=== PATIENT | male | born 1990 | race Caucasian/White ===

== ENCOUNTER 2021-04-12 17:07 | Emergency (ER) | payer OTHER ==
[~2021-04-12] VITALS: Ht 185.4 cm; Wt 142.8 kg
[2021-04-12] MEDS ORDERED: IV NORMAL SALINE 1,000ML 1,000 ML IV ONE (18:30)
--- NOTE | 2021-04-12 18:36 | EKG ---
[address] [address] Test Date: 2021-04-12 Test Time: 18:04:00 Pat Name: SULMA HUSTON Department: Room: Gender: M Gopherman: PENG : 1990 Requested By: RTISH RICHARDSON Order Number: [id number] Reading MD: Pasha Coffman Measurements Intervals [place] Rate: 97 P: 46 UT: 126 QRS: 16 QRSD: 88 T: 13 QT: 328 QTc: 421 Interpretive Statements SINUS RHYTHM Electronically Signed On 04-13-2021 12:41:06 CDT by Pasha Coffman
--- NOTE | 2021-04-12 18:53 | PHYS DOC ---
Past History Past Surgical History: Other Additional Past Surgical Histo: l rotator cuff, sinus Alcohol Use: Rarely General Adult EDM: Chief Complaint: URINARY RETENTION HPI: HPI: Patient is a 30-year-old male who presents with recent illness. Patient states that on Saturday he started having nausea/diarrhea/abdominal cramping, no appetite, headache and lower back pain. Denies fever. "I was worried because I have not been able to drink or eat anything since Saturday". "I have drank 3, route 44 water from [employer] today". Patient states that he feels fine today and denying all symptoms. "I just wanted to make sure that I was okay". History of hypertension. Review of Systems: Review of Systems: ROS At least 10 ROS systems have been reviewed and are negative except as documented in the HPI. General: Negative except as outlined in HPI above. Skin: Negative except as outlined in HPI above. HEENT: Negative except as outlined in HPI above. Neck: Negative except as outlined in HPI above. Respiratory: Negative except as outlined in HPI above.. Cardiovascular: Negative except as outlined in HPI above. Abdomen: Negative except as outlined in HPI above. : Negative except as outlined in HPI above. Back/MSK: Negative except as outlined in HPI above. Neuro: Negative except as outlined in HPI above. Psych: Negative except as outlined in HPI above. Current Medications: Current Meds: Current Medications Medications (Trade) Dose Ordered Sig/Gabrielle Start Time Stop Time Status Last Admin Dose Admin Sodium Chloride 1,000 ml @ 1,000 mls/hr 1X ONCE 04/12/21 18:30 04/12/21 19:29 UNV 04/12/21 18:30 1,000 MLS/HR Allergies: Allergies: Allergies Coded Allergies Type Severity Reaction Last Updated Verified No Known Drug Allergies 04/12/21 No Physical Exam: PE: Constitutional: Well developed, well nourished, no acute distress, non-toxic appearance. [] HENT: Normocephalic, atraumatic, bilateral external ears normal, oropharynx moist, no oral exudates, nose normal. [] Eyes: PERRLA, EOMI, conjunctiva normal, no discharge. [] Neck: Normal range of motion, no tenderness, supple, no stridor. [] Cardiovascular:Heart rate regular rhythm, no murmur [] Lungs & Thorax: Bilateral breath sounds clear to auscultation [] Abdomen: Bowel sounds normal, soft, no tenderness, no masses, no pulsatile masses. [] Skin: Warm, dry, no erythema, no rash. [] Back: No tenderness, no CVA tenderness. [] Extremities: No tenderness, no cyanosis, no clubbing, ROM intact, no edema. [] Neurologic: Alert and oriented X 3, normal motor function, normal sensory function, no focal deficits noted. [] Psychologic: Affect normal, judgement normal, mood normal. [] Current Patient Data: Vital Signs: Vital Signs Date Time Temp Pulse Resp B/P (MAP) Pulse Ox O2 Delivery O2 Flow Rate FiO2 04/12/21 17:30 98.8 116 22 155/95 (115) Room Air EKG: EKG: [] Radiology/Procedures: Radiology/Procedures: [] Heart Score: C/O Chest Pain: No Risk Factors: Risk Factors: DM, Current or recent (<one month) smoker, HTN, HLP, family history of CAD, obesity. Risk Scores: Score 0 - 3: 2.5% MACE over next 6 weeks - Discharge Home Score 4 - 6: 20.3% MACE over next 6 weeks - Admit for Clinical Observation Score 7 - 10: 72.7% MACE over next 6 weeks - Early Invasive Strategies Course & Med Decision Making: Course & Med Decision Making Pertinent Labs and Imaging studies reviewed. (See chart for details) [] 30-year-old male presents with concern over recent illness. Patient reports on Saturday he began feeling ill and has been unable to eat or drink anything until today. Patient was concerned something was wrong with him and he was dehydrated. Basic labs and NS bolus given. Patient's denying pain or any symptoms at this time. Afebrile. Patient most likely has viral syndrome. All labs unremarkable. Patient has urinated twice while in the emergency room. Patient's denying pain or any symptoms. Patient is hemodynamically stable. Discussed results with patient. Patient instructed to continue drinking plenty of water. Patient needs to follow follow-up with his PCP in the next couple of days. Dragon Disclaimer: Dragthor Disclaimer: This electronic medical record was generated, in whole or in part, using a voice recognition dictation system. Departure Departure: Impression: Primary Impression: Viral syndrome Disposition: 01 HOME / SELF CARE / HOMELESS Condition: STABLE Referrals: PETE FLYNN MD (PCP) Patient Instructions: Viral Syndrome Additional Instructions: You were seen in the emergency room for recent illness. You were given fluids in the emergency room. All of your labs were unremarkable. Please follow-up with your PCP in the next 1 to 2 days. Return to emergency room if you have wo rsening symptoms or concerns. EMERGENCY DEPARTMENT GENERAL DISCHARGE INSTRUCTIONS Thank you for coming to [facility] (ED) today and trusting us with you care. We trust that you had a positivie experience in our Emergency Department. If you wish to speak to the department management, you may call the director at [phone]. YOUR FOLLOW UP INSTRUCTIONS ARE FOLLOWS: 1. Do you have a private Doctor? If you do not have a private doctor, please ask for a resource list of physicians or clinics that may be able to assist you with follow up care. 2. The Emergency Physician has interpreted your x-rays. The X-Ray specialist will also review them. If there is a change in the findings, you will be notified in 48 hours when at all possible. 3. A lab test or culture has been done, your results will be reviewed and you will be notified if you need a change in treatment. ADDITIONAL INSTRUCTIONS AND INFORMATION: 1. Your care today has been supervised by a physician who is specially trained in emergency care. Many problems require more than one evaluation for a complete diagnosis and treatment. We recommend that you schedule your follow up appointment as recommended to ensure complete treatment of you illness or injury. If you are unable to obtain follow up care and continue to have a problem, or if your condition worsens, we recommend that you return to the ED. 2. We are not able to safely determine your condition over the phone nor are we able to give sound medical advice over the phone. For these safety reasons, if you call for medical advice we will ask you to come to the ED for further evaluation. 3. If you have any questions regarding these discharge instructions please call the ED at [phone]. SAFETY INFORMATION: In the interest of safety, wellness, and injury prevention; we encourage you to wear your sealbelt, if you smoke; quite smoking, and we encourage family to use a protective helmet for bicycling and other sporting events that present an increased risk for head injury. IF YOUR SYMPTOMS WORSEN OR NEW SYMPTOMS DEVELOP, OR YOU HAVE CONCERNS ABOUT YOUR CONDITION; OR IF YOUR CONDITION WORSENS WHILE YOU ARE WAITING FOR YOUR FOLLOW UP APPOINTMENT; EITHER CONTACT YOUR PRIMARY CARE DOCTOR, THE PHYSICIAN WHOSE NAME AND NUMBER YOU WERE GIVEN, OR RETURN TO THE ED IMMEDIATELY. TRISH RICHARDSON APRN Apr 12, 2021 18:53
[2021-04-12 20:02] LABS: GFR 88.3; POTASSIUM 3.8 mmol/L (3.5-5.1)
[2021-04-12 20:03] LABS: MAGNESIUM 2.1 mg/dL (1.8-2.4)
[2021-04-12 20:15] LABS: BASO % 0 % (0-3); EOS % 0 % (0-3); HEMATOCRIT 49.8 % (39.0-53.0); HEMOGLOBIN 16.8 g/dL (13.0-17.5); LYMPH # 1.5 x10^3/uL (1.0-4.8); LYMPH % 12 % (24-48); MEAN CORPUSCULAR HEMOGLOBIN 30 pg (25-35); MEAN CORPUSCULAR HGB CONC 34 g/dL (31-37); MEAN CORPUSCULAR VOLUME 89 fL (79-100); MONO # 0.7 x10^3/uL (0.0-1.1); MONO % 5 % (0-9); NEUT # 10.6 x10^3uL (1.8-7.7); NEUT % 83 % (31-73); PLATELET COUNT 261 x10^3/uL (140-400); RED BLOOD COUNT 5.58 x10^6/uL (4.30-5.70); RED CELL DISTRIBUTION WIDTH 13.2 % (11.5-14.5); WHITE BLOOD COUNT 12.7 x10^3/uL (4.0-11.0)
[2021-04-12 20:49] LABS: BACTERIA,URINE 0 /HPF (0-FEW); BILIRUBIN,URINE NEG (NEG); CLARITY,URINE CLEAR; COLOR,URINE YELLOW; GLUCOSE,URINE NEG (NEG); NITRITE,URINE NEG (NEG); RBC,URINE 0 /HPF (0-2); UROBILINOGEN,URINE 0.2 mg/dL (0.2 mg/dL); WBC,URINE 0 /HPF (0-4)
[2021-04-12 21:08] VITALS: BP 167/99
== END 2021-04-12 21:10 | disposition home or self-care (01) ==
LOC: ER 17:07
DX: B34.9 Viral infection, unspecified (principal)
CPT/HCPCS: 36415; 80048; 81001; 83735; 85025; 93005; 96360; 99285; J7030